=== PATIENT | male | born 1945 | race Caucasian/White ===

== ENCOUNTER 2022-11-28 16:25 | Inpatient (IN) | payer OTHER, MEDICARE ==
[2022-11-28] MEDS ORDERED: Sodium Chloride 0.9% 10 ML Syringe FLUSH PRN (17:51)
[2022-11-28] MEDS ORDERED: Furosemide 40 MG/4 ML VIAL IVPUSH ONE (18:45)
[2022-11-28 20:23] LABS: BASOPHILS ABSOLUTE AUTO 0.01 K/uL (0.00-0.10); BASOPHILS PERCENT AUTO 0.2 % (0.1-1.3); EOSINOPHILS ABSOLUTE AUTO 0.03 K/uL (0.00-0.40); EOSINOPHILS PERCENT AUTO 0.5 % (0.0-5.4); HEMATOCRIT 27.5 % (38.4-49.7); HEMOGLOBIN 8.7 g/dL (12.9-16.9); IMMATURE GRAN ABSOLUTE AUTO 0.04 K/uL (0.00-0.23); IMMATURE GRAN PERCENT AUTO 0.6 % (0.0-0.7); LYMPHOCYTES ABSOLUTE AUTO 1.09 K/uL (0.8-3.3); LYMPHOCYTES PERCENT AUTO 16.6 % (11.4-47.7); MEAN CORPUSCULAR HEMOGLOBIN 32.6 pg (31.6-35.5); MEAN CORPUSCULAR HGB CONC 31.6 g/dL (31.6-35.5); MONOCYTES ABSOLUTE AUTO 0.97 K/uL (0.20-0.90); MONOCYTES PERCENT AUTO 14.8 % (3.3-12.6); NEUTROPHILS ABSOLUTE AUTO 4.43 K/uL (1.0-7.6); NEUTROPHILS PERCENT AUTO 67.3 % (40.0-78.1); PLATELET COUNT,PLT 137 K/uL (130-375); RED BLOOD CELL COUNT 2.67 M/uL (4.14-5.76); WHITE BLOOD CELL COUNT,WBC 6.6 K/uL (3.2-11.0)
[2022-11-28 20:27] LABS: INR 1.3; PROTHROMBIN TIME 12.8 sec (9.2-10.6)
[2022-11-28 20:36] LABS: AMYLASE 23 U/L (25-115); LIPASE 44 U/L (73-393)
[2022-11-28 20:41] LABS: A/G RATIO 0.5 (1.2-2.2); ALANINE AMINOTRANSFERASE,ALT 18 U/L (12-78); ALBUMIN 2.6 g/dL (3.4-5.0); ALKALINE PHOSPHATASE 177 U/L (46-116); ASPARTATE AMNIOTRANSFERASE,AST 20 U/L (15-37); BILIRUBIN TOTAL 0.8 mg/dL (0.2-1.0); BLOOD UREA NITROGEN,BUN 52 mg/dL (7-18); CARBON DIOXIDE,CO2 26 mmol/L (21-32); CHLORIDE,CL 99 mmol/L (100-108); CREATININE 1.4 mg/dL (0.8-1.3); EST CRCL DRUG DOSING (CG) 44.03 mL/min; ESTIMATED GFR 53 mL/min (>60); GLUCOSE RANDOM 134 mg/dL (74-106); MAGNESIUM 1.6 mg/dL (1.8-2.4); PROTEIN TOTAL,TP 7.8 g/dL (6.4-8.2); SODIUM,NA 134 mmol/L (140-148)
[2022-11-28 21:03] LABS: APPEARANCE,URINE CLEAR (CLEAR); BILIRUBIN,URINE NEGATIVE (NEGATIVE); COLOR,URINE YELLOW (YELLOW); GLUCOSE,URINE NEGATIVE (NEGATIVE); KETONES,URINE NEGATIVE (NEGATIVE); LEUKOCYTE ESTERASE,URINE NEGATIVE (NEGATIVE); NITRITE,URINE NEGATIVE (NEGATIVE); OCCULT BLOOD,URINE NEGATIVE (NEGATIVE); PROTEIN,URINE NEGATIVE (NEGATIVE); UROBILINOGEN,URINE 0.2 EU/dL (0.2-1.0)
[2022-11-28 21:07] LABS: AMORPHOUS SEDIMENT,URINE NOT SEEN; BACTERIA,URINE FEW; EPITHELIAL CELLS,URINE RARE; MUCUS,URINE RARE; RBC,URINE 0-5 (0-5); WBC,URINE 0-5 (0-5)
[2022-11-28] MEDS ORDERED: Polyethylene Glycol 3350 Powder 17 GM Packet PO PRN (21:11)
[2022-11-28] MEDS ORDERED: metFORMIN 500 MG Tab PO SCH (21:11)
[2022-11-28] MEDS ORDERED: Docusate Sodium 100 MG Cap PO PRN (21:11)
[2022-11-28] MEDS ORDERED: Nitroglycerin 0.4 MG Tab.SL SL PRN (21:11)
[2022-11-28] MEDS ORDERED: Melatonin 3 MG Tab PO PRN (21:11)
[2022-11-28] MEDS: Pregabalin 50 MG Cap PO SCH (22:29)
[2022-11-28] MEDS: Tamsulosin 0.4 MG Cap.ER PO SCH (22:29)
[2022-11-28] MEDS: Metoprolol Tartrate 50 MG Tab PO SCH (22:29)
[2022-11-28] MEDS: atorvaSTATin 10 MG Tab PO SCH (22:35)
[2022-11-28] MEDS: Nortriptyline 25 MG Cap PO SCH (22:35)
[2022-11-28] MEDS: traZODone 50 MG Tab PO SCH (22:35)
[2022-11-28] MEDS: Apixaban 5 MG Tab PO SCH (22:35)
[2022-11-28] MEDS: Acetaminophen 500 MG Tab PO SCH (22:37)
[2022-11-28] MEDS: Sennosides 8.6 MG Tab PO SCH (22:39)
[2022-11-28] MEDS: Tacrolimus 0.5 MG Cap PO SCH (22:39)
[2022-11-28] MEDS: Mycophenolate Mofetil 250 MG Cap PO SCH (22:40)
[2022-11-28] MEDS: Pantoprazole 40 MG Vial IVPUSH SCH (22:41)
[2022-11-28] MEDS: cefTRIAXone 1 GM in Sodium Chloride 0.9% 50 ML IV SCH (22:48)
[2022-11-29] MEDS: Albuterol 90 MCG/6.7 GM Inhaler INH PRN (00:38)
[2022-11-29] MEDS: Insulin Lispro 100 Unit/ML 3 ML KwikPen SUBCUT SCH ×5 (00:55→20:48)
[2022-11-29] MEDS ORDERED: Sodium Chloride 0.9% 1,000 ML IV ONE (02:01)
[2022-11-29 05:05] LABS: BASOPHILS PERCENT AUTO 0.2 % (0.1-1.3); EOSINOPHILS ABSOLUTE AUTO 0.03 K/uL (0.00-0.40); EOSINOPHILS PERCENT AUTO 0.5 % (0.0-5.4); HEMATOCRIT 25.3 % (38.4-49.7); HEMOGLOBIN 7.9 g/dL (12.9-16.9); IMMATURE GRAN ABSOLUTE AUTO 0.05 K/uL (0.00-0.23); IMMATURE GRAN PERCENT AUTO 0.8 % (0.0-0.7); LYMPHOCYTES ABSOLUTE AUTO 1.07 K/uL (0.8-3.3); LYMPHOCYTES PERCENT AUTO 16.3 % (11.4-47.7); MEAN CORPUSCULAR HEMOGLOBIN 32.4 pg (31.6-35.5); MEAN CORPUSCULAR HGB CONC 31.2 g/dL (31.6-35.5); MEAN CORPUSCULAR VOLUME 103.7 fL (81.4-99.0); MONOCYTES ABSOLUTE AUTO 0.97 K/uL (0.20-0.90); MONOCYTES PERCENT AUTO 14.8 % (3.3-12.6); NEUTROPHILS ABSOLUTE AUTO 4.43 K/uL (1.0-7.6); NEUTROPHILS PERCENT AUTO 67.4 % (40.0-78.1); PLATELET COUNT,PLT 132 K/uL (130-375); RED BLOOD CELL COUNT 2.44 M/uL (4.14-5.76); WHITE BLOOD CELL COUNT,WBC 6.6 K/uL (3.2-11.0)
[2022-11-29 05:12] LABS: BASOPHILS ABSOLUTE AUTO 0.01 K/uL (0.00-0.10)
[2022-11-29 05:19] LABS: CALCIUM 8.7 mg/dL (8.5-10.1); CREATININE 1.5 mg/dL (0.8-1.3); EST CRCL DRUG DOSING (CG) 41.1 mL/min; POTASSIUM,K 4.7 mmol/L (3.6-5.2)
[2022-11-29 05:24] LABS: ANION GAP 13.7 mmol/L (5.0-14.0)
[2022-11-29] MEDS: Tiotropium BR/Olodaterol HCL 4 GM Inhalation Spray 2.5mcg/1 dose; 10 doses INH SCH (08:24)
[2022-11-29] MEDS: Finasteride 5 MG Tab PO SCH (08:30)
[2022-11-29] MEDS: Ferrous Sulfate 325 MG Tab PO SCH (08:30)
[2022-11-29] MEDS ORDERED: Bumetanide 2.5 MG/10 ML MDV IVPUSH SCH (08:30)
[2022-11-29] MEDS: Acetaminophen 500 MG Tab PO SCH ×3 (08:30→20:59)
[2022-11-29] MEDS: metFORMIN 500 MG Tab PO SCH ×2 (08:31→17:00)
[2022-11-29] MEDS: Mycophenolate Mofetil 250 MG Cap PO SCH ×2 (08:31→20:49)
[2022-11-29] MEDS: Apixaban 5 MG Tab PO SCH ×2 (08:31→20:50)
[2022-11-29] MEDS: Metoprolol Tartrate 50 MG Tab PO SCH ×2 (08:31→20:52)
[2022-11-29] MEDS: Sennosides 8.6 MG Tab PO SCH ×2 (08:32→20:59)
[2022-11-29] MEDS: Pregabalin 50 MG Cap PO SCH ×3 (08:36→20:58)
[2022-11-29] MEDS ORDERED: Famotidine 20 MG Tab PO SCH (09:00)
[2022-11-29] MEDS: Tacrolimus 0.5 MG Cap PO SCH ×2 (09:09→20:58)
[2022-11-29] MEDS: BUMETANIDE IVPUSH SCH ×4 (09:10→20:48)
[2022-11-29] MEDS: Allopurinol 100 MG Tab PO SCH (09:14)
[2022-11-29] MEDS: Pantoprazole 40 MG Vial IVPUSH SCH (09:16)
[2022-11-29] MEDS: Pantoprazole 40 MG Tab.CR PO SCH (17:00)
[2022-11-29] MEDS: Tamsulosin 0.4 MG Cap.ER PO SCH (20:50)
[2022-11-29] MEDS: atorvaSTATin 10 MG Tab PO SCH (20:52)
[2022-11-29] MEDS: Nortriptyline 25 MG Cap PO SCH (20:58)
[2022-11-29] MEDS: traZODone 50 MG Tab PO SCH (20:59)
[2022-11-29] MEDS: cefTRIAXone 1 GM in Sodium Chloride 0.9% 50 ML IV SCH (22:46)
[2022-11-30 05:14] LABS: BASOPHILS PERCENT AUTO 0.2 % (0.1-1.3); EOSINOPHILS ABSOLUTE AUTO 0.04 K/uL (0.00-0.40); EOSINOPHILS PERCENT AUTO 0.6 % (0.0-5.4); HEMATOCRIT 25.4 % (38.4-49.7); HEMOGLOBIN 7.9 g/dL (12.9-16.9); IMMATURE GRAN ABSOLUTE AUTO 0.06 K/uL (0.00-0.23); IMMATURE GRAN PERCENT AUTO 0.9 % (0.0-0.7); LYMPHOCYTES ABSOLUTE AUTO 0.87 K/uL (0.8-3.3); LYMPHOCYTES PERCENT AUTO 13.4 % (11.4-47.7); MEAN CORPUSCULAR HEMOGLOBIN 32.2 pg (31.6-35.5); MEAN CORPUSCULAR HGB CONC 31.1 g/dL (31.6-35.5); MEAN CORPUSCULAR VOLUME 103.7 fL (81.4-99.0); MONOCYTES ABSOLUTE AUTO 1.02 K/uL (0.20-0.90); MONOCYTES PERCENT AUTO 15.7 % (3.3-12.6); NEUTROPHILS ABSOLUTE AUTO 4.49 K/uL (1.0-7.6); NEUTROPHILS PERCENT AUTO 69.2 % (40.0-78.1); PLATELET COUNT,PLT 144 K/uL (130-375); RED BLOOD CELL COUNT 2.45 M/uL (4.14-5.76); WHITE BLOOD CELL COUNT,WBC 6.5 K/uL (3.2-11.0)
[2022-11-30 05:23] LABS: BASOPHILS ABSOLUTE AUTO 0.01 K/uL (0.00-0.10)
[2022-11-30 05:33] LABS: CALCIUM 8.8 mg/dL (8.5-10.1); CREATININE 1.5 mg/dL (0.8-1.3); EST CRCL DRUG DOSING (CG) 41.1 mL/min; MAGNESIUM 1.4 mg/dL (1.8-2.4); POTASSIUM,K 4.5 mmol/L (3.6-5.2)
[2022-11-30 05:35] LABS: ANION GAP 12.5 mmol/L (5.0-14.0)
[2022-11-30] MEDS: Insulin Lispro 100 Unit/ML 3 ML KwikPen SUBCUT SCH ×4 (08:01→22:40)
[2022-11-30] MEDS: Pantoprazole 40 MG Tab.CR PO SCH ×2 (08:22→16:36)
[2022-11-30] MEDS: Ferrous Sulfate 325 MG Tab PO SCH (08:22)
[2022-11-30] MEDS: Metoprolol Tartrate 50 MG Tab PO SCH ×2 (08:23→20:14)
[2022-11-30] MEDS: metFORMIN 500 MG Tab PO SCH ×2 (08:23→16:38)
[2022-11-30] MEDS: Apixaban 5 MG Tab PO SCH ×2 (08:23→20:07)
[2022-11-30] MEDS: Mycophenolate Mofetil 250 MG Cap PO SCH ×2 (08:23→20:06)
[2022-11-30] MEDS: Magnesium Oxide 400 MG Tab PO SCH ×2 (08:24→20:11)
[2022-11-30] MEDS: Tacrolimus 0.5 MG Cap PO SCH ×2 (08:24→20:06)
[2022-11-30] MEDS: Allopurinol 100 MG Tab PO SCH (08:25)
[2022-11-30] MEDS: Sennosides 8.6 MG Tab PO SCH ×2 (08:25→20:12)
[2022-11-30] MEDS: Finasteride 5 MG Tab PO SCH (08:25)
[2022-11-30] MEDS: Acetaminophen 500 MG Tab PO SCH ×3 (08:25→22:40)
[2022-11-30] MEDS: Tiotropium BR/Olodaterol HCL 4 GM Inhalation Spray 2.5mcg/1 dose; 10 doses INH SCH (08:26)
[2022-11-30] MEDS: Pregabalin 50 MG Cap PO SCH ×3 (08:27→20:14)
[2022-11-30] MEDS: Magnesium Sulfate/Water 2 GM in Premix Bag 1 BAG IV SCH ×3 (09:20→20:05)
[2022-11-30] MEDS: BUMETANIDE IVPUSH SCH ×4 (09:26→20:05)
[2022-11-30] MEDS: atorvaSTATin 10 MG Tab PO SCH (20:05)
[2022-11-30] MEDS: Tamsulosin 0.4 MG Cap.ER PO SCH (20:06)
[2022-11-30] MEDS: Nortriptyline 25 MG Cap PO SCH (20:11)
[2022-11-30] MEDS: traZODone 50 MG Tab PO SCH (22:41)
[2022-12-01 05:11] LABS: BASOPHILS PERCENT AUTO 0.3 % (0.1-1.3); EOSINOPHILS ABSOLUTE AUTO 0.09 K/uL (0.00-0.40); EOSINOPHILS PERCENT AUTO 1.3 % (0.0-5.4); HEMATOCRIT 26.9 % (38.4-49.7); HEMOGLOBIN 8.5 g/dL (12.9-16.9); IMMATURE GRAN ABSOLUTE AUTO 0.04 K/uL (0.00-0.23); IMMATURE GRAN PERCENT AUTO 0.6 % (0.0-0.7); LYMPHOCYTES ABSOLUTE AUTO 1.14 K/uL (0.8-3.3); LYMPHOCYTES PERCENT AUTO 16.5 % (11.4-47.7); MEAN CORPUSCULAR HEMOGLOBIN 32.9 pg (31.6-35.5); MEAN CORPUSCULAR HGB CONC 31.6 g/dL (31.6-35.5); MEAN CORPUSCULAR VOLUME 104.3 fL (81.4-99.0); MONOCYTES ABSOLUTE AUTO 1.05 K/uL (0.20-0.90); MONOCYTES PERCENT AUTO 15.2 % (3.3-12.6); NEUTROPHILS ABSOLUTE AUTO 4.55 K/uL (1.0-7.6); NEUTROPHILS PERCENT AUTO 66.1 % (40.0-78.1); PLATELET COUNT,PLT 150 K/uL (130-375); RED BLOOD CELL COUNT 2.58 M/uL (4.14-5.76); WHITE BLOOD CELL COUNT,WBC 6.9 K/uL (3.2-11.0)
[2022-12-01 05:15] LABS: BASOPHILS ABSOLUTE AUTO 0.02 K/uL (0.00-0.10)
[2022-12-01 05:26] LABS: ANION GAP 11.4 mmol/L (5.0-14.0); CALCIUM 8.9 mg/dL (8.5-10.1); CREATININE 1.6 mg/dL (0.8-1.3); EST CRCL DRUG DOSING (CG) 38.53 mL/min; MAGNESIUM 2.5 mg/dL (1.8-2.4); POTASSIUM,K 4.4 mmol/L (3.6-5.2)
[2022-12-01] MEDS: metFORMIN 500 MG Tab PO SCH (08:00)
[2022-12-01] MEDS: Insulin Lispro 100 Unit/ML 3 ML KwikPen SUBCUT SCH ×2 (08:00→11:40)
[2022-12-01] MEDS: Allopurinol 100 MG Tab PO SCH (08:00)
[2022-12-01] MEDS: Magnesium Oxide 400 MG Tab PO SCH (08:00)
[2022-12-01] MEDS: Metoprolol Tartrate 50 MG Tab PO SCH (08:01)
[2022-12-01] MEDS: Apixaban 5 MG Tab PO SCH (08:01)
[2022-12-01] MEDS: Ferrous Sulfate 325 MG Tab PO SCH (08:03)
[2022-12-01] MEDS: Tacrolimus 0.5 MG Cap PO SCH (08:03)
[2022-12-01] MEDS: Acetaminophen 500 MG Tab PO SCH (08:03)
[2022-12-01] MEDS: Finasteride 5 MG Tab PO SCH (08:03)
[2022-12-01] MEDS: Mycophenolate Mofetil 250 MG Cap PO SCH (08:03)
[2022-12-01] MEDS: Sennosides 8.6 MG Tab PO SCH (08:04)
[2022-12-01] MEDS: Pantoprazole 40 MG Tab.CR PO SCH (08:04)
[2022-12-01] MEDS: Pregabalin 50 MG Cap PO SCH (08:13)
[2022-12-01] MEDS: Tiotropium BR/Olodaterol HCL 4 GM Inhalation Spray 2.5mcg/1 dose; 10 doses INH SCH (08:14)
[2022-12-01] MEDS: Albuterol 90 MCG/6.7 GM Inhaler INH PRN (08:15)
== END 2022-12-01 13:00 | DRG 291 ==
LOC: JP.ED 16:25 → JP.MS 19:00 → UNDOADMIN 19:35
PROVIDERS: ADMIT Hospitalist; ATTEND Hospitalist
DX: I11.0 Hypertensive heart disease with heart failure (principal); I50.33 Acute on chronic diastolic (congestive) heart failure; I48.91 Unspecified atrial fibrillation; Z94.0 Kidney transplant status; M54.50 Low back pain, unspecified; G89.29 Other chronic pain; E11.51 Type 2 diabetes mellitus with diabetic peripheral angiopathy without gangrene; Z66 Do not resuscitate; Z20.822 Contact with and (suspected) exposure to COVID-19; Z51.5 Encounter for palliative care; I70.209 Unspecified atherosclerosis of native arteries of extremities, unspecified extremity; J44.9 Chronic obstructive pulmonary disease, unspecified; E11.9 Type 2 diabetes mellitus without complications; M16.0 Bilateral primary osteoarthritis of hip; E78.00 Pure hypercholesterolemia, unspecified; M10.9 Gout, unspecified; F41.9 Anxiety disorder, unspecified; Z87.01 Personal history of pneumonia (recurrent); Z99.2 Dependence on renal dialysis; Z99.81 Dependence on supplemental oxygen; Z79.01 Long term (current) use of anticoagulants; N40.0 Benign prostatic hyperplasia without lower urinary tract symptoms; Z79.84 Long term (current) use of oral hypoglycemic drugs; Z79.899 Other long term (current) drug therapy; Z87.891 Personal history of nicotine dependence
CPT/HCPCS: 36415; 71045 ×2; 80053; 82150; 83605; 83690; 83735; 83880; 84145; 84484; 85025; 85610; 87635; 93005; 99285; J1940; J3490; 71250; 80048; 81001; 82947; 93306; 94640; 96374; 97110-GP; 97162-GP; 97165-GO; 97530-GP; A9270-GY; C9113; J0696; J1815; J3475; J7030; J7507; U0002